=== PATIENT | female | born 1975 | race Asian ===

== ENCOUNTER 2020-11-15 01:20 | Emergency (ER) | payer MEDICAID ==
[~2020-11-15] VITALS: Ht 162.6 cm; Wt 66.2 kg
[2020-11-15 01:23] VITALS: BP_SYST 156
[2020-11-15] MEDS: KETOROLAC TROMETHAMINE 60 MG/2 ML VIAL IM ONE ×2 (01:47→01:53)
[2020-11-15] MEDS ORDERED: IBUPROFEN 600 MG TABLET ONE (01:56)
[2020-11-15] MEDS ORDERED: IBUPROFEN 600 MG TABLET PO ONE (02:00)
[2020-11-15 02:39] VITALS: BP_SYST 156
== END 2020-11-15 02:39 | disposition home or self-care (01) ==
LOC: SED 01:20
DX: S63.282A Dislocation of proximal interphalangeal joint of right middle finger, initial encounter (principal); W18.39XA Other fall on same level, initial encounter; Y93.89 Activity, other specified; Y92.89 Other specified places as the place of occurrence of the external cause; Y99.8 Other external cause status
CPT/HCPCS: 73140-TC; 99283